=== PATIENT | male | born 1975 | race Two or more races ===

== ENCOUNTER 2017-12-26 07:48 | Outpatient (CLI) | payer OTHER | END 2017-12-26 07:55 | disposition home or self-care (01) | LOC: LAB 07:48 | DX: E55.9 Vitamin D deficiency, unspecified (principal); M85.89 Other specified disorders of bone density and structure, multiple sites; E56.1 Deficiency of vitamin K ==

== ENCOUNTER 2018-08-14 08:31 | Outpatient (CLI) | payer OTHER | END 2018-08-14 13:05 | disposition home or self-care (01) | LOC: LAB 08:31 | DX: E56.1 Deficiency of vitamin K (principal) ==

== ENCOUNTER 2019-04-16 09:28 | Outpatient (CLI) | payer OTHER | END 2019-04-16 14:51 | disposition home or self-care (01) | LOC: LAB 09:28 | DX: E55.9 Vitamin D deficiency, unspecified (principal); M85.88 Other specified disorders of bone density and structure, other site ==